=== PATIENT | female | born 2000 | race Caucasian/White ===

== ENCOUNTER 2024-11-13 12:05 | Emergency (ER) | payer OTHER ==
[2024-11-13 12:18] VITALS: BP 122/57; PULSE 82; RESP 18; TEMP 99.3; BMI 22.8
[2024-11-13] MEDS ORDERED: ACETAMINOPHEN 325 MG TABLET (FP) ONE (14:07)
[2024-11-13] MEDS: ACETAMINOPHEN 500 MG TABLET (FP) PO ONE (14:12)
[2024-11-13 14:15] LABS: HCG,QUALITATIVE URINE POSITIVE
[2024-11-13 14:17] LABS: URINE APPEARANCE CLOUDY; URINE BILIRUBIN MODERATE (NEGATIVE); URINE COLOR RED; URINE GLUCOSE (UA) NEGATIVE (NEGATIVE)
[2024-11-13 14:18] LABS: URINE PROTEIN 3+ (NEGATIVE)
[2024-11-13 14:19] LABS: URINE RBC MANY /hpf (0-4); URINE WBC FEW /uL (0-25.8)
[2024-11-13 15:01] LABS: BASO % 0.5 % (0-2.0); EOS % 0.8 % (0-4.5); HEMATOCRIT 37.5 % (32.4-45.2); HEMOGLOBIN 12.4 GM/dL (10.7-15.3); LYMPH % 41.1 % (8-40); MCH 30.4 pg (25.7-33.7); MEAN CELL VOLUME 92.2 fl (80-96); MEAN PLT VOLUME 9.5 fl (7.5-11.1); MONO % 8.6 % (3.8-10.2); PLATELET COUNT 168 10^3/uL (134-434); RBC 4.06 M/mm3 (3.60-5.2); RDW 11.6 % (11.6-15.6); WHITE BLOOD COUNT 5.5 K/mm3 (4.0-10.0)
[2024-11-13 15:05] LABS: INR 1.37 (0.83-1.09); PROTHROMBIN TIME (PATIENT) 15.1 SEC (9.7-13.0)
[2024-11-13 15:07] LABS: ACTIVATED PTT 26.4 SECONDS (25.2-36.5)
[2024-11-13 15:23] LABS: POTASSIUM 3.5 mmol/L (3.5-5.1)
[2024-11-13 15:25] LABS: CALCIUM 8.5 mg/dL (8.5-10.1)
[2024-11-13 15:26] LABS: ALBUMIN 3.5 g/dl (3.4-5.0); BLOOD UREA NITROGEN 7.5 mg/dL (7-18)
[2024-11-13 15:29] LABS: CREATININE 0.4 mg/dL (0.55-1.3)
[2024-11-13 15:30] LABS: BILIRUBIN,TOTAL 0.5 mg/dL (0.2-1); TOT PROT 6.7 g/dl (6.4-8.2)
== END 2024-11-13 18:44 | disposition home or self-care (01) ==
LOC: JER 12:05
DX: O20.9 Hemorrhage in early pregnancy, unspecified (principal); O21.9 Vomiting of pregnancy, unspecified; Z3A.00 Weeks of gestation of pregnancy not specified
CPT/HCPCS: 36415; 76817-TC; 80053; 81003; 83690; 84702; 84703; 85025; 85610; 85730; 86850; 86900; 86901; 87086; 93005; 93010; 99285-25